=== PATIENT | male | born 1995 | race Caucasian/White ===

== ENCOUNTER → 2020-09-08 | Outpatient (CLI) | payer BC ==
--- NOTE | 2020-09-08 14:49 | US ---
EXAMINATION TYPE: US abdomen complete DATE OF EXAM: 09/08/2020 COMPARISON: NONE CLINICAL HISTORY: 24-year-old male R10.11 Right upper quadrant pain. TECHNIQUE: Multiple sonographic images of the abdomen are obtained. FINDINGS: EXAM MEASUREMENTS: Liver Length: 13.1 cm Gallbladder Wall: 0.2 cm CBD: 0.4 cm Spleen: 12.3 cm Right Kidney: 12.8 x 4.6 x 4.6 cm Left Kidney: 14.1 x 4.8 x 5.0 cm Pancreas: Most of the pancreas is visualized and shows no gross abnormality. Liver: wnl Gallbladder: wnl CBD: wnl Spleen: wnl Right Kidney: No hydronephrosis. 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 No hyd ronephrosis. Upper IVC: wnl Abd Aorta: portions visualized wnl, partially obscured by bowel gas IMPRESSION: 1. No gallstones or biliary ductal dilatation. 2. 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
--- NOTE | 2020-09-08 14:51 | US ---
EXAMINATION TYPE: US abdomen APPY DATE OF EXAM: 09/08/2020 COMPARISON: NONE CLINICAL HISTORY: 24-year-old male RLQ pain. TECHNIQUE: Multiple sonographic images of the right lower quadrant are obtained with graded compressi on for assessment of the appendix. FINDINGS: APPENDIX AP Diameter (normal < 6mm): 3 mm Measured outer wall to outer wall. Is the appendix seen in its entirety from the proximal cecum to distal end: no Is the appendix compressible: yes Does the appendix wall appear hypervascular: no Is an appendicolith present: no Is there inflammatory changes or free fluid present: no State Pilot notes: Partial visualization of normal appearing appendix. IMPRESSION: A short segment of normal-appearing appendix is visualized. No appendicoliths or suspicious fluid col lections in the right lower quadrant.
== END | disposition home or self-care (01) ==
LOC: RADUSWWP 09:39
PROVIDERS: ATTEND Family Medicine
DX: R10.11 Right upper quadrant pain (principal)
CPT/HCPCS: 76700; 76705